=== PATIENT | female | born 1970 | race Two or more races ===

== ENCOUNTER 2018-09-16 11:03 | Emergency (ER) | payer MEDICAID ==
[~2018-09-16] VITALS: Ht 167.6 cm; Wt 60.0 kg
[2018-09-16] MEDS ORDERED: LIDOCAINE HCL/EPINEPHRINE 1%-EPI 1:100,000 20 ML VIAL INFIL ONE (11:30)
[2018-09-16 11:46] LABS: CHLORIDE 113 mEq/L (98-107)
[2018-09-16 11:50] LABS: BASOPHILS % 0.8 % (0.0-2.0); EOSINOPHILS % 3.7 % (0.0-5.0); HEMATOCRIT. 40.2 % (36.0-48.0); HEMOGLOBIN. 13.5 g/dL (12.0-16.0); LYMPHOCYTES % 25.5 % (20.0-50.0); MEAN CORPUSCULAR HEMOGLOBIN 31.2 pg (28.0-32.0); MEAN CORPUSCULAR VOLUME 93.2 fL (81.0-99.0); MEAN PLATELET VOLUME 7.7 fl (7.4-10.4); MONOCYTES % 9.5 % (2.0-8.0); NEUTROPHILS % 60.5 % (40.0-76.0); PLATELET 276 x1000/uL (130-400); RED BLOOD CELL COUNT 4.32 mill/uL (4.2-5.4); RED CELL DISTRIBUTION WIDTH 13.4 % (11.6-14.6)
[2018-09-16 11:52] LABS: ETHANOL BLOOD < 10 mg/dL
[2018-09-16 13:24] LABS: *BARBITURATES SCREEN URINE NEGATIVE (NEGATIVE); *BENZODIAZEPINES SCREEN URINE NEGATIVE (NEGATIVE); *COCAINE SCREEN URINE NEGATIVE (NEGATIVE)
[2018-09-16 13:25] LABS: METHADONE URINE SCREEN NEGATIVE (NEGATIVE); OPIATES URINE SCREEN NEGATIVE (NEGATIVE); PHENCYCLIDINE URINE SCREEN NEGATIVE (NEGATIVE)
[2018-09-16 13:26] LABS: *AMPHETAMINES SCREEN URINE NEGATIVE (NEGATIVE)
[2018-09-16 13:28] LABS: CANNABINOID URINE SCREEN PRESUMTIVE POSITIVE (NEGATIVE)
[2018-09-16] MEDS ORDERED: OXYCODONE HCL/ACETAMINOPHEN 5/325MG TABLET PO ONE ×2 (14:00→22:00)
[2018-09-16] MEDS ORDERED: SUMATRIPTAN SUCCINATE 25MG TABLET PO ONE (14:00)
[2018-09-16] MEDS ORDERED: SUMATRIPTAN SUCCINATE 25MG TABLET PO NR (16:15)
[2018-09-16] MEDS ORDERED: TOPIRAMATE 100MG TABLET PO SCH (21:00)
[2018-09-16] MEDS ORDERED: CITALOPRAM HYDROBROMIDE 20MG TABLET PO ONE (21:00)
[2018-09-16] MEDS ORDERED: CLONAZEPAM 1MG TABLET PO ONE (21:15)
[2018-09-17 11:10] VITALS: BP 100/48
== END 2018-09-17 12:17 | disposition home or self-care (01) ==
LOC: ER 11:03
DX: S51.812A Laceration without foreign body of left forearm, initial encounter (principal); F23 Brief psychotic disorder; R45.851 Suicidal ideations; F31.9 Bipolar disorder, unspecified; F17.200 Nicotine dependence, unspecified, uncomplicated; X78.1XXA Intentional self-harm by knife, initial encounter; Y93.89 Activity, other specified; Y92.89 Other specified places as the place of occurrence of the external cause; Y99.8 Other external cause status
CPT/HCPCS: 36415; 80305; 80307; 80320; 80329; 93005; 99284; G0480